=== PATIENT | male | born 1990 | race Caucasian/White ===

== ENCOUNTER 2017-03-05 08:48 | Emergency (ER) | payer SELFPAY | END 2017-03-05 13:40 | disposition home or self-care (01) | LOC: D.ER 08:48 | DX: T14.8 Other injury of unspecified body region (principal); V89.2XXA Person injured in unspecified motor-vehicle accident, traffic, initial encounter; Y93.89 Activity, other specified; Y92.410 Unspecified street and highway as the place of occurrence of the external cause; S02.609A Fracture of mandible, unspecified, initial encounter for closed fracture; S02.40EA Zygomatic fracture, right side, initial encounter for closed fracture ==

== ENCOUNTER 2020-05-14 18:33 | Emergency (ER) | payer SELFPAY ==
[~2020-05-14] VITALS: Ht 175.3 cm; Wt 47.3 kg
[2020-05-14 18:50] VITALS: Ht 175.3 cm; Wt 47.3 kg
[2020-05-14] MEDS ORDERED: NAPROSYN500 MG PO (19:58)
[2020-05-14 22:36] VITALS: BP 125/77
== END 2020-05-14 22:37 | disposition home or self-care (01) ==
LOC: D.ER 18:33
DX: S61.512A Laceration without foreign body of left wrist, initial encounter (principal); W26.0XXA Contact with knife, initial encounter; Y93.9 Activity, unspecified; Y92.9 Unspecified place or not applicable; M25.532 Pain in left wrist; S69.92XA Unspecified injury of left wrist, hand and finger(s), initial encounter

== ENCOUNTER 2020-07-14 15:57 | Emergency (ER) | payer SELFPAY ==
[~2020-07-14] VITALS: Ht 175.3 cm; Wt 50.0 kg
[~2020-07-14 15:57] MED LIST: NAPROSYN500 MG PO
[2020-07-14 16:17] VITALS: Ht 175.3 cm; Wt 50.0 kg
== END 2020-07-14 18:46 | disposition left against medical advice (07) ==
LOC: D.ER 15:57
DX: S61.512A Laceration without foreign body of left wrist, initial encounter (principal)